=== PATIENT | female | born 1990 | race African-American/Black ===

== ENCOUNTER 2017-11-26 17:18 | Inpatient (IN) ==
[2017-11-26 19:28] LABS: Basophils % 0.2 % (0.0-0.8); Eosinophils % 0.2 % (0.00-10.9); Hematocrit 36.1 VOL% (35.7-47.0); Immature Granulocytes % 0.6 %; Lymphocytes # 1.2 10*3/uL (1.4-4.0); Lymphocytes % 7.8 % (21.3-54.2); Mean Corpuscular HGB Conc 33.2 GM/DL (32-36); Mean Corpuscular Hemoglobin 28 PG (27-34); Mean Corpuscular Volume 84.9 FL (87-102); Mean Platelet Volume 11.3 FL (9.6-12.0); Monocytes # 0.6 10*3/uL (0.11-0.8); Monocytes % 3.6 % (1.7-12.7); Neutrophils # 13.8 10*3/uL (1.4-7.4); Neutrophils % 87.6 % (38.7-73.9); Platelet Count 179 T/CUMM (130-400); Red Blood Count 4.25 MC/CUMM (3.8-5.5); Red Cell Distribution Width 13.3 % (9.3-17.3); White Blood Count 15.8 T/CUMM (4-12)
[2017-11-26 19:46] LABS: Apearance,Urine CLOUDY (Clear); Bilirubin,Urine Negative (Negative); Blood, Urine Moderate mg/dL (Negative); Glucose,Urine (UA) Negative (Negative); Ketones,Urine 5 mg/dL (Negative); Mucus,Urine Occasional /LPF (Occasional); Nitrite,Urine Negative (Negative); Protein,Urine 100 MG/DL; RBC,Urine 39 /HPF (0-4); Squamous Epithelial Cell,Urine Moderate /HPF (0-10); Urine Color Amber (Yellow); Urine Specific Gravity 1.032 (1.001-1.035); WBC,Urine 77 /HPF (0-6)
[2017-11-26 19:56] LABS: Calcium 8.5 MG/DL (8.5-10.1); Osmolality,Calculated 276.7 MOS/KG (273-304); Potassium 3.2 MMOL/L (3.5-5.1)
[2017-11-26] MEDS ORDERED: MORPHINE 4 MG/1 ML VIAL IV STA (20:19)
[2017-11-26] MEDS ORDERED: MORPHINE 4 MG/1 ML VIAL ONE (20:21)
[2017-11-26] MEDS ORDERED: SUMAtriptan 6 MG/0.5 ML VIAL SUBCUT STA (21:24)
[2017-11-26] MEDS ORDERED: SUMAtriptan 6 MG/0.5 ML VIAL SUBCUT ONE (21:32)
[2017-11-26] MEDS ORDERED: SUMAtriptan 6 MG/0.5 ML VIAL SUBCUT PRN (22:26)
[2017-11-26] MEDS ORDERED: ENOXAPARIN 40 MG/0.4 ML SYRINGE SUBCUT SCH (22:26)
[2017-11-26] MEDS: MORPHINE 4 MG/1 ML VIAL IV PRN (22:56)
[2017-11-26] MEDS: SODIUM CHLORIDE 0.9% 1,000 ML IV SCH (23:02)
[2017-11-26] MEDS: CIPROFLOXACIN INJ 400 MG in PREMIX 1 EACH IV SCH (23:03)
[2017-11-27] MEDS: MORPHINE 4 MG/1 ML VIAL IV PRN ×3 (04:02→21:44)
[2017-11-27] MEDS: POTASSIUM CHLORIDE 20 MEQ TABLET PO PRN ×3 (05:37→21:43)
[2017-11-27] MEDS: PANTOPRAZOLE 40 MG TABLET PO SCH (09:17)
[2017-11-27] MEDS: DOCUSATE SODIUM 100 MG CAPSULE PO SCH ×2 (09:17→21:44)
[2017-11-27] MEDS: CIPROFLOXACIN INJ 400 MG in PREMIX 1 EACH IV SCH ×2 (12:45→21:51)
[2017-11-27 12:48] LABS: Basophils % 0.3 % (0.0-0.8); Eosinophils % 0.2 % (0.00-10.9); Hemoglobin 10.9 GM/DL (12.0-16.0); Immature Granulocytes Absolute 0.12 #; Lymphocytes # 2.3 10*3/uL (1.4-4.0); Lymphocytes % 18.7 % (21.3-54.2); Mean Corpuscular Hemoglobin 28 PG (27-34); Mean Corpuscular Volume 84.8 FL (87-102); Mean Platelet Volume 11.1 FL (9.6-12.0); Monocytes # 1.6 10*3/uL (0.11-0.8); Monocytes % 13.3 % (1.7-12.7); Neutrophils # 8.2 10*3/uL (1.4-7.4); Neutrophils % 66.5 % (38.7-73.9); Platelet Count 162 T/CUMM (130-400); Red Blood Count 3.89 MC/CUMM (3.8-5.5); Red Cell Distribution Width 13.4 % (9.3-17.3); White Blood Count 12.4 T/CUMM (4-12)
[2017-11-27 13:17] LABS: Calcium 7.8 MG/DL (8.5-10.1); Osmolality,Calculated 276.4 MOS/KG (273-304); Potassium 3.8 MMOL/L (3.5-5.1)
[2017-11-27 15:58] LABS: Atypical Lymphocytes Few; Eosinophils 1 % (0-10); Lymphocytes 24 % (20-55); Platelet Estimate Normal; Segmented Neutrophils 61 % (50-85); Total Cells Counted 100
[2017-11-27] MEDS: SODIUM CHLORIDE 0.9% 1,000 ML IV SCH (17:34)
[2017-11-27] MEDS: ONDANSETRON 4 MG/2 ML VIAL IV PRN (21:48)
[2017-11-28] MEDS: MORPHINE 4 MG/1 ML VIAL IV PRN ×3 (04:58→21:22)
[2017-11-28] MEDS: ONDANSETRON 4 MG/2 ML VIAL IV PRN ×2 (05:02→21:27)
[2017-11-28] MEDS: CIPROFLOXACIN INJ 400 MG in PREMIX 1 EACH IV SCH ×2 (09:32→22:08)
[2017-11-28] MEDS: PANTOPRAZOLE 40 MG TABLET PO SCH (09:32)
[2017-11-28] MEDS: DOCUSATE SODIUM 100 MG CAPSULE PO SCH ×2 (09:32→21:21)
[2017-11-28] MEDS ORDERED: INDOMETHACIN 50 MG CAPSULE PO PRN (11:12)
[2017-11-28] MEDS ORDERED: LIDOCAINE 1% 20 ML VIAL MISC INJ ONE (15:00)
[2017-11-28 18:48] LABS: Cholesterol Crystals None Seen /LPF
[2017-11-28 18:50] LABS: Lymphocytes,Synovial Fluid 2 %; Neutrophils,Synovial Fluid 98 %
[2017-11-29] MEDS: MORPHINE 4 MG/1 ML VIAL IV PRN (00:50)
[2017-11-29] MEDS: ONDANSETRON 4 MG/2 ML VIAL IV PRN (00:56)
[2017-11-29 06:37] LABS: Basophils % 0.4 % (0.0-0.8); Eosinophils % 0.6 % (0.00-10.9); Hematocrit 32.3 VOL% (35.7-47.0); Hemoglobin 10.8 GM/DL (12.0-16.0); Immature Granulocytes % 0.3 %; Immature Granulocytes Absolute 0.02 #; Lymphocytes # 2.4 10*3/uL (1.4-4.0); Lymphocytes % 35.9 % (21.3-54.2); Mean Corpuscular HGB Conc 33.4 GM/DL (32-36); Mean Corpuscular Hemoglobin 28 PG (27-34); Mean Corpuscular Volume 82.8 FL (87-102); Monocytes # 1.1 10*3/uL (0.11-0.8); Monocytes % 15.5 % (1.7-12.7); Neutrophils # 3.2 10*3/uL (1.4-7.4); Neutrophils % 47.3 % (38.7-73.9); Platelet Count 200 T/CUMM (130-400); Red Cell Distribution Width 13.5 % (9.3-17.3); White Blood Count 6.8 T/CUMM (4-12)
[2017-11-29 07:04] LABS: Calcium 8.7 MG/DL (8.5-10.1); Osmolality,Calculated 274.5 MOS/KG (273-304); Potassium 3.8 MMOL/L (3.5-5.1)
[2017-11-29 07:36] LABS: Lymphocytes 33 % (20-55); Segmented Neutrophils 58 % (50-85); Total Cells Counted 100
[2017-11-29 07:37] LABS: Hypochromasia 1+; Platelet Estimate Adequate; Target Cells Slight
[2017-11-29] MEDS: PANTOPRAZOLE 40 MG TABLET PO SCH (09:42)
[2017-11-29] MEDS: POTASSIUM CHLORIDE 20 MEQ TABLET PO PRN (09:43)
[2017-11-29] MEDS: DOCUSATE SODIUM 100 MG CAPSULE PO SCH ×2 (09:43→20:43)
[2017-11-29] MEDS: CIPROFLOXACIN INJ 400 MG in PREMIX 1 EACH IV SCH (09:45)
[2017-11-29] MEDS ORDERED: cefTRIAXone 250 MG VIAL IM ONE (11:22)
[2017-11-29] MEDS ORDERED: AZITHROMYCIN 250 MG TABLET PO ONE (11:22)
[2017-11-29] MEDS: cefTRIAXone 1,000 MG in SYRINGE 1 EACH IV SCH (20:43)
[2017-11-29 21:19] LABS: HIV Antigen/Antibody Result Nonreactive (Nonreactive)
[2017-11-30] MEDS: ONDANSETRON 4 MG/2 ML VIAL IV PRN ×4 (01:29→20:55)
[2017-11-30] MEDS: MORPHINE 4 MG/1 ML VIAL IV PRN ×3 (07:45→20:56)
[2017-11-30] MEDS: PANTOPRAZOLE 40 MG TABLET PO SCH (09:30)
[2017-11-30] MEDS: DOCUSATE SODIUM 100 MG CAPSULE PO SCH ×2 (09:30→20:55)
[2017-11-30] MEDS: cefTRIAXone 1,000 MG in SYRINGE 1 EACH IV SCH (21:01)
[2017-12-01] MEDS: MORPHINE 4 MG/1 ML VIAL IV PRN ×3 (03:18→20:10)
[2017-12-01] MEDS: DOCUSATE SODIUM 100 MG CAPSULE PO SCH ×2 (10:15→20:11)
[2017-12-01] MEDS: PANTOPRAZOLE 40 MG TABLET PO SCH (10:15)
[2017-12-01] MEDS: ONDANSETRON 4 MG/2 ML VIAL IV PRN ×2 (13:23→20:11)
[2017-12-01] MEDS: cefTRIAXone 1,000 MG in SYRINGE 1 EACH IV SCH (20:15)
[2017-12-02] MEDS: PANTOPRAZOLE 40 MG TABLET PO SCH (09:47)
[2017-12-02] MEDS: DOCUSATE SODIUM 100 MG CAPSULE PO SCH ×2 (09:47→20:33)
[2017-12-02] MEDS: MORPHINE 4 MG/1 ML VIAL IV PRN ×3 (10:28→23:28)
[2017-12-02] MEDS: cefTRIAXone 1,000 MG in SYRINGE 1 EACH IV SCH (20:33)
[2017-12-03 07:49] LABS: Basophils % 0.5 % (0.0-0.8); Eosinophils # 0.1 10*3/uL (0.0-0.87); Eosinophils % 1.3 % (0.00-10.9); Hematocrit 34.8 VOL% (35.7-47.0); Hemoglobin 11.3 GM/DL (12.0-16.0); Immature Granulocytes % 0.4 %; Immature Granulocytes Absolute 0.03 #; Lymphocytes # 2.6 10*3/uL (1.4-4.0); Lymphocytes % 34.5 % (21.3-54.2); Mean Corpuscular HGB Conc 32.5 GM/DL (32-36); Mean Corpuscular Hemoglobin 27 PG (27-34); Mean Corpuscular Volume 83.1 FL (87-102); Mean Platelet Volume 10.8 FL (9.6-12.0); Monocytes # 0.6 10*3/uL (0.11-0.8); Monocytes % 7.8 % (1.7-12.7); Neutrophils # 4.2 10*3/uL (1.4-7.4); Neutrophils % 55.5 % (38.7-73.9); Platelet Count 361 T/CUMM (130-400); Red Blood Count 4.19 MC/CUMM (3.8-5.5); Red Cell Distribution Width 13.3 % (9.3-17.3); White Blood Count 7.6 T/CUMM (4-12)
[2017-12-03 08:16] LABS: Calcium 9.3 MG/DL (8.5-10.1); Osmolality,Calculated 266.2 MOS/KG (273-304); Potassium 4.2 MMOL/L (3.5-5.1)
[2017-12-03] MEDS: DOCUSATE SODIUM 100 MG CAPSULE PO SCH ×2 (09:18→20:49)
[2017-12-03] MEDS: PANTOPRAZOLE 40 MG TABLET PO SCH (09:19)
[2017-12-03] MEDS ORDERED: BISACODYL 5 MG TABLET PO PRN (10:14)
[2017-12-03] MEDS: ONDANSETRON 4 MG/2 ML VIAL IV PRN (10:19)
[2017-12-03] MEDS: MORPHINE 4 MG/1 ML VIAL IV PRN ×2 (10:44→23:11)
[2017-12-03] MEDS ORDERED: POLYETHYLENE GLYCOL POWDER 17 GM PACK PO PRN (13:36)
[2017-12-03] MEDS: cefTRIAXone 1,000 MG in SYRINGE 1 EACH IV SCH (20:58)
[2017-12-04] MEDS: DOCUSATE SODIUM 100 MG CAPSULE PO SCH ×3 (10:10→20:47)
[2017-12-04] MEDS: PANTOPRAZOLE 40 MG TABLET PO SCH (10:10)
[2017-12-04] MEDS: cefTRIAXone 1,000 MG in SYRINGE 1 EACH IV SCH (13:39)
[2017-12-04] MEDS: INDOMETHACIN 25 MG CAPSULE PO PRN (20:47)
[2017-12-05] MEDS: INDOMETHACIN 25 MG CAPSULE PO PRN (03:44)
[2017-12-05] MEDS: cefTRIAXone 1,000 MG in SYRINGE 1 EACH IV SCH (08:42)
[2017-12-05] MEDS: DOCUSATE SODIUM 100 MG CAPSULE PO SCH (08:43)
[2017-12-05] MEDS: PANTOPRAZOLE 40 MG TABLET PO SCH (08:43)
[2017-12-05] MEDS ORDERED: ROPIVACAINE 0.5% 30 ML VIAL ONE (10:50)
[2017-12-05] MEDS ORDERED: methylPREDNISolone ACETATE 80 MG/1 ML VIAL ONE (10:50)
[2017-12-05 12:03] VITALS: BP 100/84
== END 2017-12-05 13:16 | disposition home or self-care (01) | DRG 549 ==
LOC: N.ED 17:18 → N.EDINP 17:18 → N.5E 22:25 → SUATTDRO 11-27 14:35
PROVIDERS: ADMIT Internal Medicine; ATTEND Internal Medicine

== ENCOUNTER 2022-07-11 07:59 | Inpatient (IN) ==
[2022-07-11] MEDS ORDERED: ceFAZolin 3,000 MG in SYRINGE 1 EACH IV ONE (08:06)
[2022-07-11] MEDS ORDERED: CARBOPROST TROMETHAMINE 250 MCG/ML AMP IM PRN (08:06)
[2022-07-11] MEDS ORDERED: miSOPROStoL 200 MCG TABLET RECTAL PRN (08:06)
[2022-07-11] MEDS ORDERED: OXYTOCIN/LR 20 UNIT/1,000 ML BAG IV ONE ×3 (08:06→11:52)
[2022-07-11] MEDS ORDERED: METHYLERGONOVINE 0.2 MG/1 ML AMP IM PRN (08:06)
[2022-07-11] MEDS ORDERED: TRANEXAMIC ACID 1,000 MG in SODIUM CHLORIDE 0.9% 100 ML IV PRN (08:06)
[2022-07-11] MEDS ORDERED: FAMOTIDINE 20 MG/2 ML VIAL IV ONE (08:06)
[2022-07-11] MEDS ORDERED: CITRIC ACID/SODIUM CITRATE 30 ML UDCUP PO ONE (08:06)
[2022-07-11 08:29] LABS: Basophils % 0.2 % (0.0-0.8); Eosinophils % 0.5 % (0.00-10.9); Hematocrit 29.9 VOL% (35.7-47.0); Hemoglobin 9.2 GM/DL (12.0-16.0); Immature Granulocytes % 0.9 %; Immature Granulocytes Absolute 0.08 #; Lymphocytes # 2.9 10*3/uL (1.4-4.0); Lymphocytes % 33.8 % (21.3-54.2); Mean Corpuscular HGB Conc 30.8 GM/DL (32-36); Mean Corpuscular Volume 73.1 FL (87-102); Mean Platelet Volume 11.8 FL (9.6-12.0); Monocytes # 0.7 10*3/uL (0.11-0.8); Monocytes % 8.5 % (1.7-12.7); NRBC # 0.02 10*3/uL; Neutrophils % 56.1 % (38.7-73.9); Platelet Count 193 T/CUMM (130-400); Red Blood Count 4.09 MC/CUMM (3.8-5.5); Red Cell Distribution Width 16.9 % (9.3-17.3); White Blood Count 8.7 T/CUMM (4-12)
[2022-07-11] MEDS ORDERED: LACTATED RINGERS 1,000 ML IV SCH ×2 (08:30→12:00)
[2022-07-11 08:53] LABS: Hypochromia Slight; Lymphocytes 43 % (20-55); Microcytosis Slight; Platelet Estimate Adequate; Total Cells Counted 100
[2022-07-11] MEDS ORDERED: miSOPROStoL 200 MCG TABLET ONE (09:20)
[2022-07-11] MEDS ORDERED: METHYLERGONOVINE 0.2 MG/1 ML AMP ONE (09:21)
[2022-07-11] MEDS ORDERED: CARBOPROST TROMETHAMINE 250 MCG/ML AMP IM ONE (09:21)
[2022-07-11] MEDS ORDERED: SODIUM CHLORIDE 0.9% 0 ML IV ONE (09:21)
[2022-07-11] MEDS ORDERED: TRANEXAMIC ACID 1,000 MG/10 ML VIAL ONE (09:21)
[2022-07-11] MEDS ORDERED: ONDANSETRON 4 MG/2 ML VIAL ONE (10:33)
[2022-07-11] MEDS ORDERED: buprenorphine HCL 0.3 MG/ML VIAL ONE (10:33)
[2022-07-11] MEDS ORDERED: PHENYLEPHRINE 1 MG/10 ML SYRINGE IV ONE (10:33)
[2022-07-11] MEDS ORDERED: OXYTOCIN 10 UNIT/ML VIAL IM ONE (10:36)
[2022-07-11] MEDS ORDERED: OXYTOCIN/LR 30 UNIT/1,000 ML BAG IV ONE (10:36)
[2022-07-11] MEDS ORDERED: KETOROLAC 30 MG/1 ML VIAL ONE (11:06)
[2022-07-11] MEDS ORDERED: ACETAMINOPHEN INJ 1,000 MG/100 ML VIAL IV ONE (11:06)
[2022-07-11] MEDS ORDERED: MIDAZOLAM 2 MG/2 ML VIAL ONE (11:30)
[2022-07-11 11:40] LABS: Bilirubin,Urine Negative (Negative); Blood, Urine Negative (Negative); Glucose,Urine (UA) Negative (Negative); Ketones,Urine Negative (Negative); Mucus,Urine Occasional /LPF (Occasional); Nitrite,Urine Negative (Negative); Protein,Urine Negative (Negative); RBC,Urine <1 /HPF (0-4); Squamous Epithelial Cell,Urine Occasional /HPF (0-10); Urine Appearance Clear (Clear); Urine Color Yellow (Yellow); Urine Urobilinogen 0.2 eU/dL (<2.0)
[2022-07-11 11:45] LABS: Cord Arterial Blood HCO3 22.6 MMOL/L
[2022-07-11 11:48] LABS: Cord Venous Blood HCO3 23.4 MMOL/L; Cord Venous Blood PCO2 46.7 MMHG; Cord Venous Blood PO2 29.1
[2022-07-11] MEDS ORDERED: SIMETHICONE CHEW 80 MG TABLET PO PRN (11:52)
[2022-07-11] MEDS ORDERED: RHO(D) IMMUNE GLOBULIN 300 MCG SYRINGE IM ONE (11:52)
[2022-07-11] MEDS ORDERED: ACETAMINOPHEN 325 MG TABLET PO PRN (11:52)
[2022-07-11] MEDS ORDERED: ONDANSETRON 4 MG/2 ML VIAL IV PRN (11:52)
[2022-07-11] MEDS ORDERED: MAGNESIUM HYDROXIDE SUSP 30 ML UDCUP PO PRN (11:52)
[2022-07-11 19:32] LABS: Basophils % 0.2 % (0.0-0.8); Eosinophils % 0.1 % (0.00-10.9); Hematocrit 28.8 VOL% (35.7-47.0); Hemoglobin 8.7 GM/DL (12.0-16.0); Immature Granulocytes % 0.6 %; Immature Granulocytes Absolute 0.06 #; Lymphocytes # 1.8 10*3/uL (1.4-4.0); Lymphocytes % 19.2 % (21.3-54.2); Mean Corpuscular HGB Conc 30.2 GM/DL (32-36); Mean Platelet Volume 11.2 FL (9.6-12.0); Monocytes # 0.7 10*3/uL (0.11-0.8); Monocytes % 7.7 % (1.7-12.7); NRBC # 0.02 10*3/uL; Neutrophils % 72.2 % (38.7-73.9); Platelet Count 157 T/CUMM (130-400); Red Blood Count 3.89 MC/CUMM (3.8-5.5); Red Cell Distribution Width 16.8 % (9.3-17.3); White Blood Count 9.5 T/CUMM (4-12)
[2022-07-11 19:59] LABS: Lymphocytes 23 % (20-55); Total Cells Counted 100
[2022-07-11 20:00] LABS: Anisocytosis 1+; Hypochromia 1+; Microcytosis 1+; Polychromasia Slight
[2022-07-11 20:01] LABS: Platelet Estimate Adequate
[2022-07-11] MEDS: ACETAMINOPHEN 500 MG TABLET PO SCH (20:59)
[2022-07-11] MEDS: KETOROLAC 30 MG/1 ML VIAL IV SCH (21:10)
[2022-07-11] MEDS: DOCUSATE SODIUM 100 MG CAPSULE PO SCH (22:04)
[2022-07-12] MEDS: KETOROLAC 30 MG/1 ML VIAL IV SCH ×2 (04:36→15:28)
[2022-07-12] MEDS: ACETAMINOPHEN 500 MG TABLET PO SCH ×2 (04:37→05:44)
[2022-07-12] MEDS ORDERED: diphenhydrAMINE CAP 25 MG CAPSULE PO PRN (04:43)
[2022-07-12 04:50] LABS: Basophils % 0.2 % (0.0-0.8); Eosinophils # 0.1 10*3/uL (0.0-0.87); Eosinophils % 0.9 % (0.00-10.9); Hematocrit 30.3 VOL% (35.7-47.0); Hemoglobin 9.3 GM/DL (12.0-16.0); Immature Granulocytes % 0.9 %; Immature Granulocytes Absolute 0.07 #; Lymphocytes # 2.2 10*3/uL (1.4-4.0); Lymphocytes % 27.1 % (21.3-54.2); Mean Corpuscular HGB Conc 30.7 GM/DL (32-36); Mean Corpuscular Volume 72.8 FL (87-102); Monocytes # 0.7 10*3/uL (0.11-0.8); Monocytes % 8.3 % (1.7-12.7); Neutrophils % 62.6 % (38.7-73.9); Platelet Count 174 T/CUMM (130-400); Red Blood Count 4.16 MC/CUMM (3.8-5.5); Red Cell Distribution Width 16.8 % (9.3-17.3); White Blood Count 8.1 T/CUMM (4-12)
[2022-07-12 05:09] LABS: Eosinophils 5 % (0-10); Hypochromia Slight; Lymphocytes 20 % (20-55); Microcytosis Slight; Platelet Estimate Adequate; Total Cells Counted 100
[2022-07-12] MEDS: METOCLOPRAMIDE 10 MG TABLET PO SCH ×3 (10:10→23:56)
[2022-07-12] MEDS: MULTIVITAMIN (PRENATAL) TABLET PO SCH (10:10)
[2022-07-12] MEDS: DOCUSATE SODIUM 100 MG CAPSULE PO SCH ×2 (10:10→22:29)
[2022-07-12] MEDS: IBUPROFEN 800 MG TABLET PO PRN ×2 (16:10→23:59)
[2022-07-13] MEDS ORDERED: IBUPROFEN 800 MG TABLET PO PRN (07:10)
[2022-07-13] MEDS: METOCLOPRAMIDE 10 MG TABLET PO SCH (10:06)
[2022-07-13] MEDS: MULTIVITAMIN (PRENATAL) TABLET PO SCH (10:06)
[2022-07-13] MEDS: DOCUSATE SODIUM 100 MG CAPSULE PO SCH (10:06)
[2022-07-13] MEDS ORDERED: DIPH/TET/ACEL PERT BOOSTER VACCINE 0.5 ML VIAL IM ONE (11:32)
[2022-07-13] MEDS ORDERED: INFLUENZA VIRUS VACCINE 0.5 ML SYRINGE IM ONE (11:32)
[2022-07-13 16:21] VITALS: BP 144/83
== END 2022-07-13 16:30 | disposition home or self-care (01) | DRG 788 ==
LOC: N.LD 07:59 → N.OB 14:35
PROVIDERS: ADMIT Obstetrics & Gynecology; ATTEND Obstetrics & Gynecology
PROC: LDCSECT (ICD-10-PCS; 2022-07-11 10:00)